=== PATIENT | female | born 1945 | race Hispanic/Latino ===

== ENCOUNTER 2024-07-15 17:03 | Emergency (ER) | payer MEDICARE ==
[~2024-07-15] VITALS: Ht 165.1 cm; Wt 72.6 kg
[2024-07-15 17:28] LABS: HEMATOCRIT 42.3 % (36-48); MEAN CORPUSCULAR HEMOGLOBIN 29.7 pg (27.0-33.0); MEAN CORPUSCULAR HGB CONC 33.3 g/dL (32.0-36.0); MEAN CORPUSCULAR VOLUME 89.1 fL (79-99); RED BLOOD CELL COUNT(AUTO) 4.75 MIL/uL (4.00-5.50); RED CELL DISTRIBUTION WIDTH 12.4 % (11.0-15.5); WHITE BLOOD COUNT (AUTO) 8.5 K/uL (4.8-10.8)
[2024-07-15 17:43] LABS: CREATININE 0.7 mg/dL (0.5-1.0); POTASSIUM 3.6 mmol/L (3.5-5.1)
[2024-07-15] MEDS: 0.9%NACL 1000ML 1,000 ML IV ONE (17:49)
[2024-07-15] MEDS: ONDANSETRON ODT 4MG TAB SL ONE (17:49)
[2024-07-15] MEDS: FAMOTIDINE 20MG VIAL IV ONE (17:49)
[2024-07-15] MEDS: ketOROlac 15MG/ML VIAL (15MG/ML) IM ONE (17:49)
[2024-07-15 19:08] LABS: APPEARANCE,URINE CLOUDY (CLEAR); BILIRUBIN,URINE NEGATIVE (NEGATIVE); COLOR,URINE LIGHT-YELLOW (YELLOW); GLUCOSE, URINE (UA) NEGATIVE (NEGATIVE); KETONES,URINE NEGATIVE (NEGATIVE); LEUKOCYTE ESTERASE ,URINE 500 Leu/uL (NEGATIVE); NITRATE,URINE 2+ (NEGATIVE); OCCULT BLOOD,URINE NEGATIVE (NEGATIVE); PROTEIN,URINE NEGATIVE (NEGATIVE); UROBILINOGEN,URINE 0.2 mg/dL (0.2-1.0)
[2024-07-15 19:10] LABS: ADD UA MICROSCOPIC YES
[2024-07-15 19:14] LABS: BACTERIA,URINE MOD /HPF (None Seen); MUCUS,URINE FEW LPF (None Seen); OTHER CASTS, URINE 2 /LPF (None Seen); SQUAMOUS EPITHELIAL CELL,UR RARE /HPF (0-2); UNCLASSIFIED CRYSTAL 1 /HPF (None Seen); WBC CLUMP FEW /HPF (0-1); WBC,URINE 26-50 /HPF (0-1); YEAST,URINE BUDDING RARE /HPF (None Seen)
[2024-07-15] MEDS ORDERED: MACR100 PO (19:18)
[2024-07-15] MEDS: NITROFURANTOIN MONOHYD/M-CRYST 100 MG CAPSULE PO ONE (19:29)
[2024-07-15 19:38] VITALS: BP 134/75; PULSE 66; RESP 18; TEMP 98.4; O2SAT 97
== END 2024-07-15 19:42 | disposition home or self-care (01) ==
LOC: EDH 17:03 → EDBD 17:03 → EDH 19:42
DX: N39.0 Urinary tract infection, site not specified (principal); R11.2 Nausea with vomiting, unspecified; F41.9 Anxiety disorder, unspecified; I10 Essential (primary) hypertension; E03.9 Hypothyroidism, unspecified; Z88.0 Allergy status to penicillin; Z79.2 Long term (current) use of antibiotics; Z98.890 Other specified postprocedural states; Z85.3 Personal history of malignant neoplasm of breast
CPT/HCPCS: 99284; 96374; 96372; 80048; 83690; 85027; 87086 ×2; 87186; 81001; 36415; 74018; J3490; J7030; J1885

== ENCOUNTER → 2025-01-30 | Outpatient (CLI) | payer MEDICARE ==
[~2025-01-30] MED LIST: MACR100 PO
--- NOTE | 2025-01-30 10:42 | HMCIMG ---
US AORTA LIMITED REASON: hyperlipidemia unspecified. COMPARISON: None TECHNIQUE: Limited abdominal aorta ultrasound study was performed. FINDINGS: Proximal portion of the abdominal aorta measures 1.9 x 1.8 cm, midportion measures 2.2 x 1.9 cm and distal portion measures 1.6 x 1.5 cm. Right common iliac artery measures 6 x 12 mm. Left common iliac artery measures 6 x 10 mm. IMPRESSION: No sonographic evidence of abdominal aortic aneurysm.
== END | disposition home or self-care (01) ==
LOC: RAH 08:16
PROVIDERS: ATTEND Internal Medicine Interventional Cardiology
DX: E78.5 Hyperlipidemia, unspecified (principal); I10 Essential (primary) hypertension; I25.10 Atherosclerotic heart disease of native coronary artery without angina pectoris; I70.0 Atherosclerosis of aorta; E78.2 Mixed hyperlipidemia; E07.9 Disorder of thyroid, unspecified; R94.31 Abnormal electrocardiogram [ECG] [EKG]
CPT/HCPCS: 76775